=== PATIENT | female | born 1985 | race Caucasian/White ===

== ENCOUNTER → 2021-11-24 11:55 | Outpatient (CLI) | payer BC, SELFPAY ==
--- NOTE | ~2021-11-24 | XR_ITS ---
EXAMINATION: XR ankle LT min 3V DATE: 11/24/2021 12:24 INDICATION: Left ankle pain TECHNIQUE: Anteroposterior, lateral, mortise, and additional oblique view of the ankle were obtained. COMPARISON: None. FINDINGS: Bone alignment is normal. There is no fracture. The joint spaces are normal. The soft tissu es are unremarkable. IMPRESSION: 1. No acute osseous abnormality. Reviewed, dictated and finalized at location F.
== END ==
PROVIDERS: PCP Family Medicine; Visit Provider Nurse Practitioner Family
DX: M25.572 Pain in left ankle and joints of left foot (principal)
CPT/HCPCS: 73610

== ENCOUNTER 2025-01-23 08:02 | Outpatient (CLI) | payer OTHER, SELFPAY ==
--- OUTSIDE RECORDS SUMMARY | 2025-01-23 08:04 | XMS_ITS | Clinical Summary ---
Author Organization [facility] Address [address] [place] [address] Care Team Providers Care Marine Steamfitter Name Role Phone Oskar Thao MD Primary Care Provider + [phone] Cameron Lala MD Unavailable [phone] Deloris Malcolm NP Unavailable [phone] Jonathan Harris MD Unavailable [phone] Allergies Active Allergy Reactions Criticality Noted Date Comments Erythromycin Rash Medium Medications escitalopram (LEXAPRO) 20 mg tablet Take 1 tablet (20 mg total) by mouth daily Active amoxicillin-clav ulanate (AUGMENTIN) 875-125 mg per tablet Take 1 tablet by mouth 2 (two) times a day 12/31/2024 Active buPROPion XL (WELLBUTRIN XL) 150 mg 24 hr tablet Take 1 tablet (150 mg total) by mouth daily 12/11/2024 Active bupropion HCl (WELLBUTRIN ORAL) Take 20 mcg by mouth daily 12/18/2024 Active methylPREDNISolo ne (MEDROL DOSEPACK) 4 mg Dosepack Take 1 tablet (4 mg total) by mouth daily 12/25/2024 Active Active Problems Problem Noted Date Diagnosed Date Coarctation of aorta 2019 Assessment & Plan (08/27/2021 12:09 PM VACUUM APPLICATOR OPERATOR): Bp is at goal. We discussed the risk of developing chronic HTN and I recommended checking BP once a month. Repeat TTE on return in 1 year Due for repeat chest MRA 2024 Due for repeat MRA brain 2025 Cardiac risk counseling 2019 Chronic left-sided thoracic back pain 07/12/2018 Assessment & Plan (07/12/2018 12:23 PM VACUUM APPLICATOR OPERATOR): 32-year-old white female with regional myofascial syndrome of the left scapulothoracic region. I do not find any evidence of hypermobility and I feel this represents likely a bursitis within the structures underlying the scapula. I feel her current therapy regimen will be helpful. I recommended that she use the meloxicam on an as needed basis. I recommended that she have an ergonomic evaluation of her desk within the next 2 weeks before she returns to work. I have encouraged her to return to a gradual conditioning exercise regime and to avoid hyper extension of her neck. She may follow up with me on an as needed basis. If she has worsening pain, she may need directed nerve conduction testing to determine if this relates at all to her cervical disc but I feel that this is unlikely as it would likely be more in the C6-7 region. Greater than 50% of this visit was spent in counseling and I spent 60 min with the patient and her mother. S/P coarctation stent 06/26/2010 Encounters Date Type Department Care Team Description 01/20/2025 1:00 PM CDT - 01/20/2025 11:59 PM CDT Hospital Encounter [facility] [address] [place] [id number] Screening mammogram, encounter for Discharge Disposition: Discharge to home or self care 01/10/2025 Telephone [facility] 8th [place] [address] [place] [address] Bull Yo MD PhD Scheduling Testing/Treatment 01/08/2025 Results Follow-Up [facility] [address] [place] [address] 8th [place] [address] [place] [phone] Bull Yo MD PhD Transthoracic Echo (TTE) Complete W Doppler/CF 01/07/2025 1:15 PM CDT Office Visit [facility] [address] [place] [address] 8th [place] [address] [place] [phone] Bull Yo MD PhD Coarctation of aorta (Primary Dx) 01/07/2025 10:35 AM CDT - 01/07/2025 11:59 PM CDT Hospital Encounter [facility] [address] [facility] [address]th [place] [address] Coarctation of aorta Discharge Disposition: Discharge to home or self care from Last 3 Months Immunizations Immunization Administration Dates Next Due Influenza, Quadrivalent, Maya l Culture-based MDCK, Preservative Free, Antibiotic Free, Intramuscular 04/20/2022 Influenza, Quadrivalent, Split, Intramuscular Influenza, Quadrivalent, Spl it, Preservative Free, Intramuscular 04/20/2019 Influenza, Trivalent, IM (MDV) 04/16/2013,2011 Influenza, Trivalent, Preservative Free, Intramu scular 04/23/2015,05/09/2014 Tdap 12/10/2014,04/16/2013 Surgical History Surgery Date Site/Laterality Comments HEART SURGERY HERNIA REPAIR 2011 Medical History Medical History Date Comments Coarctation of aorta, congenital Family History Medical History Relation Name Comments Heart disease Maternal Grandfather Family history of cardiac disorder - (Added by TW Conv) Heart disease Maternal Grandmother Family history of cardiac disorder - (Added by TW Conv) Breast cancer Neg Hx Ovarian cancer Neg Hx Thyroid cancer Neg Hx Relation Name Status Comments Maternal Grandfather Maternal Grandmother Social History Tobacco Use Types Packs/Day Years Used Date Smoking Tobacco: Never Smokeless Tobacco: Never Tobacco Cessation:Counseling Given: Not Answered Alcohol Use Standard Drinks/Week Comments Yes 0 (1 standard drink = 0.6 oz pur e alcohol) Comments Unknown Sex and Gender Information Value Date Recorded Sex Assigned at Not on file Legal Sex Female 1:35 AM VACUUM APPLICATOR OPERATOR Gender Identity Not on file Sexual Orientation Not on file Obstetrics History Para Term AB IAB SAB Ectopic Multiple Livin g Live Births 3 2 2 Date Outcome GA Total Labor Labor/2nd/3rd Weight Sex Type Anes PTL Cathy A1 A5 Name Clin Term Term Last Filed Vital Signs Vital Sign Reading Time Taken Comments Blood Pressure 124/85 01/07/2025 1:04 PM CDT Pulse 92 01/07/2025 1:04 PM CDT Temperature 36.6 C (97.8 F) 10/11/2024 4:45 PM CDT Respiratory Rate 18 10/11/2024 4:45 PM CDT Oxygen Saturation 96% 01/07/2025 1:04 PM CDT Inhaled Oxygen Concentration - - Weight 77.1 kg (170 lb) 01/20/2025 1:17 PM CDT Height 162.6 cm (5' 4) 01/20/2025 1:17 PM CDT Body Mass Index 29.18 01/20/2025 1:17 PM CDT Plan of Treatment Health Maintenance Due Date Last Done Comments Cervical Cancer Screening 1984 Depression Screening 1984 Hepatitis C Screening 1984 Varicella Vaccines (1 of 2 - 13+ 2-dose series) 1997 Hepatitis B Screening 2002 Regular Well Visit/Exam 18-64 2002 HPV Vaccines (1 - 3-dose SCDM series) 08/31/2011 Covid-19 Vaccine ( season) 2024 04/20/2022, 04/11/2021, 09/16/2020, Additional history exists DTaP/Tdap/Td Vaccine (3 - Td or Tdap) 12/10/2024 12/10/2014, 04/16/2013 Influenza Vaccine (#1) 2025 , 04/20/2019, 04/20/2019, Additional history exists Breast Cancer Screening-Mammogram 01/20/2026 01/20/2025, 01/19/2024, 12/13/2022, Additional history exists Pneumococcal vaccine <65 Aged Out No longer eligible based on patient's age to complete this topic Procedures Procedure Name Priority Date/Time Associated Diagnosis Comments SCREENING MAMMOGRAM BILATERAL W TY Schedule Routine, Read Routine (OP Routine) 01/20/2025 1:27 PM CDT Screening mammogram, encounter for TRANSTHORACIC ECHO (TTE) COMPLETE W DOPPLER/CF WO CONTRAST Routine 01/07/2025 11:43 AM CDT Coarctation of aorta from Last 3 Months Results * Screening Mammogram Bilateral W Ty (01/20/2025 1:27 PM CDT) Anatomical Region Laterality Modality Breast Bilateral Mammography Impressions 01/20/2025 4:27 PM CDT There is no mammographic evidence of malignancy. A 1 year screening mammogram is recommended. BI-RADS: 1 - Negative. The patient has been or will be contacted. The patient will be entered into a reminder system with a target due date of 1 year for her next mammogram. Electronically signed by: Lorna Napoles M.D. Narrative 01/20/2025 4:27 PM CDT EXAMINATION: SCREENING MAMMOGRAM BILATERAL W TY ORDERING HEALTHCARE PROVIDER: SELF SCREENING MAMMOGRAM HISTORY: Routine screening mammography. COMPARISON: 2022 TECHNIQUE: CC and MLO views of the bilateral breasts were obtained with digital technique using breast tomosynthesis with C view. Computer aided detection was utilized. FINDINGS: DENSITY: The tissue of the bilateral breasts is heterogeneously dense, which may obscure small masses. BREASTS: There are no suspicious masses, suspicious calcifications, or other suspicious findings in either breast. There has been no suspicious interval change. us Self Screening Mammogram IMG MAMMO PROCEDURES Fi nal Result * TRANSTHORACIC ECHO (TTE) COMPLETE W DOPPLER/CF WO CONTRAST (01/07/2025 11:43 AM CDT) EF Mod BP 53 % CONS SCIMAGE Anatomical Region Laterality Modality Ultrasound 01/07/2025 10:3 9 AM CDT Narrative 01/07/2025 4:39 PM CDT [facility] Cardiac [place] [address] [place] [address] Transthoracic Echocardiographic Report Patient Name: GREG EL N : 1985 (39y 4m) Gender: F Study Date: 01/07/2025 10:39:31 Ht(Inch): 66 Wt(Lb): 177.91 BSA: 1.94 [place] Actor: Colin Stevenson RDCS Location: [facility] Order Provider: BULL YO Heart Rate: 73 BMI: 28.71 BP: 131 / 82 Ref Provider: BULL YO Report amended on 2025-01-08 at 16:05:47 CDT: Added/Modified: Conclusions [MODIFIED]: [MODIFIED TEXT] Conclusions: Normal left ventricular size based on volume index. Normal LV wall thickness. Mildly depressed left ventricular systolic function. The Ejection Fraction (Urbina's) is measured at 53 %. Normal diastolic function. The average global longitudinal strain is borderline. The LV global strain is: -17.6 %. Normal right ventricular size. Normal right ventricular systolic function. No significant valvular pathology identified. No pericardial effusion. Normal aortic root and ascending aorta size when indexed to body surface area. Normal estimated pulmonary artery systolic pressure. Suprasternal notch views of the aorta did not show enough of the aorta to visualize the area of coarctation. The Doppler flow in the portions of the aorta that were visualized were unremarkable and did not show a characteristic saw tooth pattern. CTA or MRA of the chest might be more helpful to visualized the area of coarctation. Comments: Suprasternal notch views of the aorta did not show enough of the aorta to visualize the area of coarctation. The Doppler flow in the portions of the aorta that were visualized were unremarkable and did not show a characteristic saw tooth pattern. CTA or MRA of the chest might be more helpful to visualized the area of coarctation. Previously Signed by:Roberto Fajardo MD 2025-01-07 16:38:47 CDT End of Addendum PROCEDURES: Echocardiographic Report: Transthoracic complete echo with strain imaging, 2D, spectral and tissue Doppler, color flow Doppler, M-mode. INDICATIONS: Q25.1 Coarctation of aorta. CONCLUSIONS: 1. Normal left ventricular size based on volume index. Normal LV wall thickness. Mildly depressed left ventricular systolic function. The Ejection Fraction (Urbina's) is measured at 53 %. Normal diastolic function. The average global longitudinal strain is borderline. The LV global strain is: -17.6 %. 2. Normal right ventricular size. Normal right ventricular systolic function. 3. No significant valvular pathology identified. 4. No pericardial effusion. 5. Normal aortic root and ascending aorta size when indexed to body surface area. 6. Normal estimated pulmonary artery systolic pressure. 7. Suprasternal notch views of the aorta did not show enough of the aorta to visualize the area of coarctation. The Doppler flow in the portions of the aorta that were visualized were unremarkable and did not show a characteristic saw tooth pattern. CTA or MRA of the chest might be more helpful to visualized the area of coarctation. ATTESTATION: I have personally reviewed and interpreted this study without fellow or resident. - DISCLAIMER: The study images and the final report will be retained in the patient chart by the [facility] for the legally required time period. This chart constitutes the legal record of any testing performed. FINDINGS: Left Ventricle: Normal left ventricular size based on volume index. Normal LV wall thickness. Mildly depressed left ventricular systolic function. The Ejection Fraction (Urbina's) is measured at 53 %. Normal diastolic function. The average global longitudinal strain is borderline. The LV global strain is: -17.6 %. Right Ventricle: Normal right ventricular size. Normal right ventricular systolic function. Left Atrium: The left atrium is normal in size. Right Atrium: The right atrium is normal in size. Mitral Valve: Normal mitral valve structure. No mitral regurgitation. No stenosis present. Aortic Valve: Normal trileaflet aortic valve. No aortic regurgitation. No aortic valve stenosis. The mean transaortic gradient is 3 mmHg. The aortic valve area by the continuity equation (using VTI) is 3.54 cm2. Aortic valve dimensionless index is 1.08. Tricuspid Valve: Normal tricuspid valve structure. No tricuspid regurgitation. No tricuspid valve stenosis. Pulmonic Valve: Normal pulmonic valve structure. No pulmonic regurgitation. No pulmonic valve stenosis present. Pericardium: Normal pericardium without pericardial effusion. Aorta: Normal aortic root size at sinuses of Valsalva. Normal aortic root size when indexed. The ascending aorta is normal in size when indexed. IVC: IVC is normal in size. PASP: Normal estimated pulmonary artery systolic pressure. Rhythm: Normal Sinus rhythm was seen during the study. MEASUREMENTS: 2D/MM Value Range Doppler Value Range LVIDd 2D 4.02 cm [ 3.80 - 5.20 ] AV Peak Alan 1.2 m/s [ 1.0 - 1.7 ] LVIDs 2D 2.92 cm [ 2.20 - 3.50 ] AV Peak PG 5.76 mmHg IVSd 2D 0.91 cm [ 0.60 - 0.90 ] AV Mean PG 3 mmHg LVPWd 2D 0.85 cm [ 0.60 - 0.90 ] AV VTI 21.9 cm LV Thickness Ratio 1.1 LVOT Peak Alan 1.2 m/s [ 0.7 - 1.1 ] LV FS 2D 27.54 % [ 27.00 - 45.00 ] LVOT Peak PG 5.76 mmHg LV Mass 2D 109.29 g LVOT Mean PG 3 mmHg LV Mass Index 2D 56.34 g/m2 LVOT VTI 23.7 cm RWT 0.42 LVOT Diam 2.04 cm EDV Mod BP 112.12 ml [ 46.00 - 106.00 ] JULIO CÉSAR VTI 3.54 cm2 LV EDV Index 57.79 ml/m2 LVOT/AV VTI 1.08 - Dimensionless index (DVI) ESV Mod BP 53.15 ml [ 14.00 - 42.00 ] MV E Peak Alan 0.8 m/s [ 0.6 - 1.3 ] EF Mod BP 53 % [ 54 - 74 ] MV A Peak Alan 0.5 m/s [ 1.0 - 1.2 ] LV GLS -17.6 % [ -25.0 - -18.0 ] MV E/A 1.6 ratio [ 0.8 - 1.5 ] LA Length 4C 4.75 cm MV Decel Time 131.58 msec [ 104.00 - 258.00 ] LA Length 2C 4.08 cm Med E` Alan 12.7 cm/sec [ 8.0 - 25.0 ] LA Volume BP 31.77 ml Lat E` Alan 16.3 cm/sec [ 10.0 - 25.0 ] LA Volume Index 16.38 ml/m2 [ 16.00 - 34.00 ] Average E/E` 5.52 RV Base Dimen 2D 2.9 cm [ 2.5 - 4.2 ] RV S` 11.91 cm/sec TAPSE 2.11 cm [ 1.71 - 5.00 ] TR Peak Alan 0.9 m/s [ 1.0 - 2.8 ] RA Volume 24.31 ml TR Peak PG 3.2 mmHg RA Volume Index 12.53 ml/m2 PV Peak Alan 0.8 m/s [ 0.4 - 0.8 ] AoR Diam 2D 2.81 cm [ 2.70 - 3.70 ] PV Peak PG 2.56 mmHg Ao Root Index 1.45 cm/m2 [ 1.00 - 2.00 ] Asc Ao Diam 2D 2.37 cm Asc Ao Index 1.22 cm/m2 Electronically Signed By: Roberto Fajardo MD 2025-01-07 16:38:47 CDT Electronically Amended By: Roberto Fajardo MD 01/08/2025 16:05:47 CDT [ADDENDUM] CC: Bull Yo M.D. Procedure Note Roberto Fajardo MD - 01/08/2025 [facility] Cardiac [place] [address] [place] [address] Transthoracic Echocardiographic Report Patient Name: GREG EL N : 1985 (39y 4m) Gender: F Study Date: 01/07/2025 10:39:31 Ht(Inch): 66 Wt(Lb): 177.91 BSA: 1.94 [place] Actor: Colin Stevenson RDCS Location: [facility] Order Provider:BULL YO Heart Rate: 73 BMI: 28.71 BP: 131 / 82 Ref Provider: BULL YO Report amended on 2025-01-08 at 16:05:47 CDT: Added/Modified: Conclusions [MODIFIED]: [MODIFIED TEXT] Conclusions: Normal left ventricular size based on volumeindex. Normal LV wall thickness. Mildly depressed left ventricular systolic function.The Ejection Fraction (Urbina's) is measured at 53 %. Normal diastolic function. Theaverage global longitudinal strain is borderline. The LV global strain is: -17.6 %. Normal right ventricular size. Normal right ventricular systolicfunction. No significant valvular pathology identified. No pericardial effusion. Normal aortic root and ascending aorta size when indexed to body surfacearea. Normal estimated pulmonary artery systolic pressure. Suprasternal notch views of the aorta did not show enough of the aorta tovisualize the area of coarctation. The Doppler flow in the portions of the aorta thatwere visualized were unremarkable and did not show a characteristic saw tooth pattern.CTA or MRA of the chest might be more helpful to visualized the area of coarctation. Comments: Suprasternal notch views of the aorta did not show enough of the aorta tovisualize the area of coarctation. The Doppler flow in the portions of the aorta thatwere visualized were unremarkable and did not show a characteristic saw tooth pattern.CTA or MRA of the chest might be more helpful to visualized the area of coarctation. Previously Signed by:Roberto Fajardo MD 2025-01-07 16:38:47 CDT End of Addendum PROCEDURES: Echocardiographic Report: Transthoracic complete echo with strain imaging,2D, spectral and tissue Doppler, color flow Doppler, M-mode. INDICATIONS: Q25.1 Coarctation of aorta. CONCLUSIONS: 1. Normal left ventricular size based on volume index. Normal LV wallthickness. Mildly depressed left ventricular systolic function. The Ejection Fraction(Urbina's) is measured at 53 %. Normal diastolic function. The average globallongitudinal strain is borderline. The LV global strain is: -17.6 %. 2. Normal right ventricular size. Normal right ventricular systolicfunction. 3. No significant valvular pathology identified. 4. No pericardial effusion. 5. Normal aortic root and ascending aorta size when indexed to bodysurface area. 6. Normal estimated pulmonary artery systolic pressure. 7. Suprasternal notch views of the aorta did not show enough of the aortato visualize the area of coarctation. The Doppler flow in the portions of the aortathat were visualized were unremarkable and did not show a characteristic saw toothpattern. CTA or MRA of the chest might be more helpful to visualized the area ofcoarctation. ATTESTATION: I have personally reviewed and interpreted this study without fellow orresident. - DISCLAIMER: The study images and the final report will be retained in the patientchart by the [facility] Laboratory for the legally required time period. This chart constitutesthe legal record of any testing performed. FINDINGS: Left Ventricle: Normal left ventricular size based on volume index. NormalLV wall thickness. Mildly depressed left ventricular systolic function. TheEjection Fraction (Urbina's) is measured at 53 %. Normal diastolic function. The averageglobal longitudinal strain is borderline. The LV global strain is: -17.6 %. Right Ventricle: Normal right ventricular size. Normal right ventricularsystolic function. Left Atrium: The left atrium is normal in size. Right Atrium: The right atrium is normal in size. Mitral Valve: Normal mitral valve structure. No mitral regurgitation. Nostenosis present. Aortic Valve: Normal trileaflet aortic valve. No aortic regurgitation. Noaortic valve stenosis. The mean transaortic gradient is 3 mmHg. The aortic valve areaby the continuity equation (using VTI) is 3.54 cm2. Aortic valve dimensionlessindex is 1.08. Tricuspid Valve: Normal tricuspid valve structure. No tricuspidregurgitation. No tricuspid valve stenosis. Pulmonic Valve: Normal pulmonic valve structure. No pulmonicregurgitation. No pulmonic valve stenosis present. Pericardium: Normal pericardium without pericardial effusion. Aorta: Normal aortic root size at sinuses of Valsalva. Normal aortic rootsize when indexed. The ascending aorta is normal in size when indexed. IVC: IVC is normal in size. PASP: Normal estimated pulmonary artery systolic pressure. Rhythm: Normal Sinus rhythm was seen during the study. MEASUREMENTS: 2D/MM Value Range DopplerValue Range LVIDd 2D 4.02 cm [ 3.80 - 5.20 ] AV Peak Vel1.2 m/s [ 1.0 - 1.7 ] LVIDs 2D 2.92 cm [ 2.20 - 3.50 ] AV Peak PG5.76 mmHg IVSd 2D 0.91 cm [ 0.60 - 0.90 ] AV Mean PG3 mmHg LVPWd 2D 0.85 cm [ 0.60 - 0.90 ] AV VTI21.9 cm LV Thickness Ratio 1.1 LVOT Peak Vel1.2 m/s [ 0.7 - 1.1 ] LV FS 2D 27.54 % [ 27.00 - 45.00 ] LVOT Peak PG5.76 mmHg LV Mass 2D 109.29 g LVOT Mean PG3 mmHg LV Mass Index 2D 56.34 g/m2 LVOT VTI23.7 cm RWT 0.42 LVOT Diam2.04 cm EDV Mod BP 112.12 ml [ 46.00 - 106.00 ] JULIO CÉSAR VTI3.54 cm2 LV EDV Index 57.79 ml/m2 LVOT/AV VTI1.08 - Dimensionless index (DVI) ESV Mod BP 53.15 ml [ 14.00 - 42.00 ] MV E Peak Vel0.8 m/s [ 0.6 - 1.3 ] EF Mod BP 53 % [ 54 - 74 ] MV A Peak Vel0.5 m/s [ 1.0 - 1.2 ] LV GLS -17.6 % [ -25.0 - -18.0 ] MV E/A1.6 ratio [ 0.8 - 1.5 ] LA Length 4C 4.75 cm MV Decel Bbuz711.58 msec [ 104.00 - 258.00 ] LA Length 2C 4.08 cm Med E` Vel12.7 cm/sec [ 8.0 - 25.0 ] LA Volume BP 31.77 ml Lat E` Vel16.3 cm/sec [ 10.0 - 25.0 ] LA Volume Index 16.38 ml/m2 [ 16.00 - 34.00 ] Average E/E`5.52 RV Base Dimen 2D 2.9 cm [ 2.5 - 4.2 ] RV S`11.91 cm/sec TAPSE 2.11 cm [ 1.71 - 5.00 ] TR Peak Vel0.9 m/s [ 1.0 - 2.8 ] RA Volume 24.31 ml TR Peak PG3.2 mmHg RA Volume Index 12.53 ml/m2 PV Peak Vel0.8 m/s [ 0.4 - 0.8 ] AoR Diam 2D 2.81 cm [ 2.70 - 3.70 ] PV Peak PG2.56 mmHg Ao Root Index 1.45 cm/m2 [ 1.00 - 2.00 ] Asc Ao Diam 2D2.37 cm Asc Ao Index1.22 cm/m2 Electronically Signed By: Roberto Fajardo MD 2025-01-07 16:38:47 CDT Electronically Amended By: Roberto Fajardo MD 01/08/2025 16:05:47 CDT [ADDENDUM] CC: Bull Yo M.D. Bull Yo MD PhD CV ECHO PROCEDURES Edit ed Result - Final from Last 3 Months Insurance [employer] [place] [employer] PL[employer] PLUS Care Teams Marine Steamfitter Relationship Specialty Start Date End Date Oskar Thao MD PCP - General 10/25/17 Cameron Lala MD [address] [facility] [address] [place] [address] Surgeon Orthopedic Surgery 11/06/17 Deloris Malcolm NP [address] [facility] [address] [place] [address] Nurse Practitioner Orthopedic Surgery 11/29/17 Jonathan Harris MD [address] [address] Referring Physician Obstetrics and Gynecology 12/13/22
--- OUTSIDE RECORDS SUMMARY | 2025-01-23 08:04 | XMS_ITS | Referral Summary ---
Author Organization [facility] Address [address] [place] [address] Care Team Providers Care Revenue Analyst Name Role Phone Oskar Thao MD Primary Care Provider Cameron Lala MD Unavailable [phone] Deloris Malcolm NP Unavailable [phone] Jonathan Harris MD Unavailable [phone] Encounters Date Type Department Care Team Description 01/20/2025 1:00 PM CDT - 01/20/2025 11:59 PM CDT Hospital Encounter [facility] [address] [place] [address] Screening mammogram, encounter for Discharge Disposition: Discharge to home or self care 01/10/2025 Telephone [facility] Cardiology [address] [facility] [address]th [place] [address] [place] [address] Bull Yo MD PhD Scheduling Testing/Treatment 01/08/2025 Results Follow-Up [facility] Cardiology [address] [facility] 8th [place] [address] [place] [address] Bull Yo MD PhD Transthoracic Echo (TTE) Complete W Doppler/CF 01/07/2025 10:35 AM CDT - 01/07/2025 11:59 PM CDT Hospital Encounter [facility] Cardiac Diagnostic Lab [address] [address] Coarctation of aorta Discharge Disposition: Discharge to home or self care 01/07/2025 1:15 PM CDT Office Visit [facility] Cardiology [address] [facility] 8th [place] [address] [place] [id number] Bull Yo MD PhD Coarctation of aorta (Primary Dx) from Last 3 Months Allergies Active Allergy Reactions Criticality Noted Date [...] 2019 Assessment & Plan (08/27/2021 12:09 PM BULLDOGGER): Bp is at goal. We discussed the risk of developing chronic HTN and I recommended checking BP once a month. Repeat TTE on return in 1 year Due for repeat chest MRA 2024 Due for repeat MRA brain 2025 Cardiac risk counseling 2019 Chronic left-sided thoracic back pain 07/12/2018 Assessment & Plan (07/12/2018 12:23 PM BULLDOGGER): 32-year-old white female with regional myofascial syndrome [...] and her mother. S/P coarctation stent 06/26/2010 Immunizations Immunization Administration Dates Next Due Influenza, Quadrivalent, Maya l Culture-based MDCK, Preservative Free, Antibiotic Free, Intramuscular 04/20/2022 Influenza, Quadrivalent, Split, Intramuscular Influenza, Quadrivalent, Spl it, Preservative Free, Intramuscular 04/20/2019 Influenza, Trivalent, IM (MDV) 04/16/2013,2011 Influenza, Trivalent, Preservative Free, Intramu scular 04/23/2015,05/09/2014 Tdap 12/10/2014,04/16/2013 Social History Tobacco Use Types Packs/Day Years Used Date Smoking Tobacco: Never Smokeless Tobacco: Never Tobacco Cessation:Counseling Given: Not Answered Alcohol Use Standard Drinks/Week Comments Yes 0 (1 standard drink = 0.6 oz pur e alcohol) Comments Unknown Sex and Gender Information Value Date Recorded Sex Assigned at Not on file Legal Sex Female 1:35 AM BULLDOGGER Gender Identity Not on file Sexual Orientation Not on file Last Filed Vital Signs Vital Sign Reading [...] 01/20/2025 1:17 PM CDT Plan of Treatment Not on file Procedures Procedure Name Priority Date/Time Associated Diagnosis [...] AM CDT Narrative 01/07/2025 4:39 PM CDT [facility] [place] [address] [place] [address] Transthoracic Echocardiographic Report Patient Name: GREG EL N : 1985 (39y 4m) Gender: F Study Date: 01/07/2025 10:39:31 Ht(Inch): 66 Wt(Lb): 177.91 BSA: 1.94 Systems Project Manager: Colin Stevenson RDCS Location: [facility] Order Provider: BULL YO Heart Rate: 73 [...] Procedure Note Roberto Fajardo MD - 01/08/2025 [facility] [place] [address] [place] [address] Transthoracic Echocardiographic Report Patient Name: GREG EL N : 1985 (39y 4m) Gender: F Study Date: 01/07/2025 10:39:31 Ht(Inch): 66 Wt(Lb): 177.91 BSA: 1.94 Systems Project Manager: Colin Stevenson RDCS Location: [facility] Order Provider:BULL YO Heart Rate: 73 BMI: [...] LA Length 4C 4.75 cm MV Decel Oynf730.58 msec [ 104.00 - 258.00 ] LA [...] - Final from Last 3 Months Insurance [facility] CHOICE PLUS [facility] PL[facility] Care Teams Revenue Analyst Relationship Specialty Start Date End Date Oskar Thao MD PCP - General 10/25/17 Cameron Lala MD [address] [facility] [address] [place] [address] Surgeon Orthopedic Surgery 11/06/17 Deloris Malcolm NP [address] [facility] [address] [place] [address] Nurse Practitioner Orthopedic Surgery 11/29/17 Jonathan Harris MD [address] [place] [address] Referring Physician Obstetrics and Gynecology 12/13/22
--- OUTSIDE RECORDS SUMMARY | 2025-01-23 08:04 | XMS_ITS | Encounter Summary ---
Author Organization [facility] Address [address] [place] [address] Phone Care Team Providers Care Spooling Operator Name Role Phone Oskar Thao MD Primary Care Provider [phone] Cameron Lala MD Unavailable [phone] Deloris Malcolm NP Unavailable [phone] Jonathan Harris MD Unavailable [phone] Encounter Details Date Type Department Care Team (Late st Contact Info) Description 01/08/2025 Results Follow-Up [facility] Cardiology [address] [facility] 8th [place] [address] [place] [address] Fabiano Yo MD PhD [address] [facility] [address] [place] [address] Transthoracic Echo (TTE) Complete W Doppler/CF Social History Tobacco Use Types Packs/Day Years Used Date Smoking Tobacco: Never Smokeless Tobacco: Never Alcohol Use Standard Drinks/Week Comments Yes 0 (1 standard drink = 0.6 oz pur e alcohol) Comments Unknown Sex and Gender Information Value Date Recorded Sex Assigned at Not on file 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 Gender Identity Not on file Sexual Orientation Not on file documented as of this encounter Plan of Treatment Not on file documented as of this encounter Visit Diagnoses Not on filedocumented in this encounter Care Teams Spooling Operator Relationship Specialty Start Date End Date Oskar Thao MD PCP - General 10/25/17 Cameron Lala MD [address] [place] [address] Surgeon Orthopedic Surgery 11/06/17 Deloris Malcolm NP [address] [facility] [address] [place] [address] Nurse Practitioner Orthopedic Surgery 11/29/17 Jonathan Harris MD [address] [place] [address] Referring Physician Obstetrics and Gynecology 12/13/22 documented as of this encounter
== END 2025-01-23 08:03 | disposition home or self-care (01) ==
LOC: ANHAUDASC 08:02
PROVIDERS: PCP Family Medicine; Visit Provider Otolaryngology Otolaryngology/Facial Plastic Surgery
DX: H90.12 Conductive hearing loss, unilateral, left ear, with unrestricted hearing on the contralateral side (principal)
CPT/HCPCS: 92557; 92567